=== PATIENT | male | born 2005 | race Caucasian/White ===

== ENCOUNTER 2025-04-23 21:38 | Emergency (ER) | payer OTHER, BC ==
[~2025-04-23] VITALS: Ht 170.2 cm; Wt 59.1 kg
[2025-04-23 21:44] VITALS: TEMP 97.8
[2025-04-23 22:19] LABS: APPEARANCE,URINE CLEAR (CLEAR); GLUCOSE, URINE (UA) NEGATIVE (NEGATIVE); LEUKOCYTE ESTERASE ,URINE NEGATIVE (NEGATIVE); NITRATE,URINE NEGATIVE (NEGATIVE); OCCULT BLOOD,URINE NEGATIVE (NEGATIVE); SPECIFIC GRAVITIY, URINE 1.002 (1.003-1.030)
[2025-04-23 22:26] LABS: SQUAMOUS EPITHELIAL CELL,UR Rare /LPF (None Seen)
[2025-04-24 00:07] LABS: PLATELET COUNT (AUTO) 289 K/uL (150-450); RED BLOOD CELL COUNT(AUTO) 4.97 MIL/uL (4.50-5.90); RED CELL DISTRIBUTION WIDTH 13.0 % (11.5-14.5); WHITE BLOOD COUNT (AUTO) 7.8 K/uL (4.5-11.0)
[2025-04-24 00:15] LABS: CALCIUM, TOTAL 9.1 mg/dL (8.8-10.5); CREATININE 0.87 mg/dL (0.60-1.30); GLOMERULAR FILTR. RATE CALC > 60 mL/min (>60); GLUCOSE,RANDOM 105 mg/dL (70-110); SODIUM SERUM 139 mmol/L (136-145); UREA NITROGEN, BLOOD 10 mg/dL (7-18)
[2025-04-24] MEDS ORDERED: DOXY-354 PO (03:08)
[2025-04-24 03:16] VITALS: BP 129/61; PULSE 98; RESP 15; O2SAT 98
== END 2025-04-24 03:22 | disposition home or self-care (01) ==
LOC: EMS 21:41
DX: N45.1 Epididymitis (principal); Z90.49 Acquired absence of other specified parts of digestive tract
CPT/HCPCS: 76870; 80048; 81001; 85025; 99284